=== PATIENT | female | born 1995 ===

== ENCOUNTER 2017-01-20 17:13 | Emergency (ER) | payer BC ==
[2017-01-20 17:20] VITALS: BP 109/58
--- NOTE | 2017-01-20 18:11 | UC ---
Jimbo Mueller Alfonso, scribed for Chilo Pro MD on 01/20/17 at 1751 . Headache HPI - HPI Summary HPI Summary: This patient is a 21 year old F presenting to [facility] accompanied by mother with a chief complaint of an occipital headache since this morning. The CC is described as an ache. The patient rates the pain 5/10 in severity. Symptoms aggravated by exertion and alleviated by nothing. Patient reports fever (2 days ago suddenly after a nap), muscle aches, joint aches, neck ache, feeling spaced out, back pain, and diarrhea. Patient denies cough, sore throat, abdominal pain , rhinorrhea, chest congestion, dysuria, and vaginal discharge. LNMP 01/06/17. She reports being outside often and having bug bites. This headache is different from her previous headaches. PMHx of migraines. - History Of Current Complaint Chief Complaint: UCHeadache Stated Complaint: STIFF NECK,FEVER,HEADACHE Hx Obtained From: Patient Hx Last Menstrual Period: 01/06/17 Onset/Duration: Sudden Onset, Lasting Hours - This morning, Still Present Onset Of Symptoms: Sudden Currently Pain Is: Current Pain Scale(0-10)= - 5/10, Moderate Pain Intensity: 5 Pain Scale Used: 0-10 Numeric Timing: Constant Location of Headache: Occipital Aggravating Factor: Exertion Allevating Factors: Nothing Associated Signs And Symptoms: Positive: Other (Noted In Comments) - Patient reports fever (2 days ago suddenly after a nap), muscle aches, joint aches, neck ache, feeling spaced out, back pain, and diarrhea. Patient denies cough, sore throat, abdominal pain, rhinorrhea, chest congestion, dysuria, and vaginal discharge. - Allergies/Home Medications Allergies/Adverse Reactions: Allergies Allergy/AdvReac Type Severity Reaction Status Date / Time No Known Allergies Allergy Verified 03/31/16 13:23 PMH/Surg Hx/FS Hx/Imm Hx Neurological History: Migraine - Surgical History Surgical History: Yes Surgery Procedure, Year, and Place: Dental implants - Family History Known Family History: Negative: Respiratory Disease - Social History Alcohol Use: None Substance Use Type: None Smoking Status (MU): Never Smoked Tobacco Have You Smoked in the Last Year: No Review of Systems Constitutional: Fever ENT: Other - Negative sore throat, rhinorrhea, chest congestion Respiratory: Other - Negative cough Gastrointestinal: Diarrhea, Other - Negative abd pain. Genitourinary: Other - Negative dysuria, and vaginal discharge Musculoskeletal: Other: - Positive muscle aches, joint aches, neck ache, back pain. Neurological: Headache, Other - Positive feeling spaced out. All Other Systems Reviewed And Are Negative: Yes Physical Exam Triage Information Reviewed: Yes Appearance: No Pain Distress, Ill-Appearing - Mildly Vital Signs: Initial Vital Signs Temp 98.4 F 01/20/17 17:16 Pulse 93 01/20/17 17:16 Resp 18 01/20/17 17:16 BP 109/58 01/20/17 17:16 Pulse Ox 100 01/20/17 17:16 Vital Signs Reviewed: Yes Eye Exam: Normal ENT: Positive: Normal ENT inspection Neck: Positive: Other: - Complain of pain with neck flection and extension. Respiratory: Positive: Other: - CTA, breath sounds present Cardiovascular: Positive: RRR Abdomen Description: Positive: Nontender, Soft Bowel Sounds: Positive: Present Musculoskeletal: Positive: Other: - Tenderness to palpation of posterior neck, and thoracic and lumbar spine. Neurological: Positive: Other: - normal, sensory/motor intact, A&O x3 Psychological: Positive: Age Appropriate Behavior Skin: Positive: Other - warm, color reflects adequate perfusion, dry Headache Course/Dx - Course Course Of Treatment: PATIENT APPEARS MILDLY ILL. DISCUSSED HER S/SX MAY BE MENINGITIS AND HERE IN THE CLINIC AND WE ARE UNABLE TO EVALUATE AND TREAT POSSIBLE MENINGITIS IN THE CLINIC. DISCUSSED THE NEED TO GO TO THE EMERGENCY DEPARTMENT FOR EVALUATION AND TREATMENT. SHE AND HER MOTHER AGREED AND WILL DRIVE TO THE ED. I CALLED THE ED AND DISCUSSED THE CASE WITH DR KISER. - Differential Dx/Diagnosis Provider Diagnoses: HEADACHE, NECK AND BACK PAIN WITH FEVER. Discharge - Discharge Plan Condition: Stable Disposition: HOME Patient Education Materials: Fever in Adults (ED), Acute Headache (ED), Back Pain (ED), Neck Pain (ED) Referrals: Mihaela Cody MD [Medical Doctor] - Additional Instructions: GO DIRECTLY TO THE EMERGENCY DEPARTMENT FOR FURTHER EVALUATION AND CARE FOR YOUR FEVER, HEADACHE, NECK AND BACK PAIN WITH THE POSSIBILITY OF MENINGITIS. The documentation as recorded by the Jimbo aguilar Alfonso accurately reflects the service I personally performed and the decisions made by me, Chilo Pro MD.
== END 2017-01-20 18:05 | disposition home or self-care (01) ==
LOC: UCEAST 17:13
DX: R51 Headache (principal); M54.2 Cervicalgia; M54.9 Dorsalgia, unspecified; R50.9 Fever, unspecified; R19.7 Diarrhea, unspecified
CPT/HCPCS: 99211; G0463

== ENCOUNTER 2017-01-20 18:28 | Emergency (ER) | payer BC ==
[2017-01-20] MEDS ORDERED: Ketorolac INJ* 30 MG/ML 1 ML VIAL IV PUSH ONE (21:45)
[2017-01-20] MEDS ORDERED: NS 0.9% 1000 ML* 1,000 ML IV ONE (21:45)
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
[2017-01-20 21:53] VITALS: BP 115/71
[2017-01-20 22:19] LABS: Hematocrit 39 % (35-47); Mean Corpuscular HGB Conc 34 g/dl (31-36); Mean Corpuscular Hemoglobin 29 pg (27-31); Mean Corpuscular Volume 86 fL (80-97); Mean Platelet Volume 11 um3 (7.4-10.4); Red Blood Count 4.49 10^6/ul (4.0-5.4); Red Cell Distribution Width 13 % (10.5-15); White Blood Count 7.8 10^3/ul (3.5-10.8)
[2017-01-20 22:30] LABS: Manual Entry Verification MER0007; Mono Internal Control QC Line Present
[2017-01-20 22:33] LABS: Albumin 4.5 g/dL (3.2-5.2); BUN/Creatinine Ratio 16.4 (8-20); C Reactive Protein 22.22 mg/L (< 5.00); Calcium 9.2 mg/dL (8.6-10.3); EGFR African American 144.3 (>60); EGFR Non-African American 112.2 (>60); Globulin 3.1 g/dL (2-4); Potassium 3.5 mmol/L (3.5-5.0); Total Bilirubin 0.4 mg/dL (0.2-1.0); Total Protein 7.6 g/dL (6.4-8.9)
== END 2017-01-20 23:38 | disposition home or self-care (01) ==
LOC: ED 18:28
DX: B34.9 Viral infection, unspecified (principal); R51 Headache; R19.7 Diarrhea, unspecified; R11.0 Nausea
CPT/HCPCS: 36415; 80053; 83605; 85025; 86140; 86308; 87651; 96374; 99283; J1885